=== PATIENT | female | born 1970 | race Caucasian/White ===

== ENCOUNTER 2019-08-26 08:33 | Outpatient (REF) | payer BC, SELFPAY ==
[2019-08-26 09:05] LABS: Basophils # 0.1 10^3/uL (0.0-0.1); Eosinophils # 0.1 10^3/uL (0.0-0.8); Eosinophils % 2.2 %; Hematocrit 37.9 % (37.0-47.0); Hemoglobin 11.1 g/dL (11.5-15.3); Lymphocytes # 1.8 10^3/uL (0.8-4.8); Lymphocytes % 28.9 %; Mean Corpuscular HGB Conc 29.3 g/dL (30.0-36.0); Mean Corpuscular Hemoglobin 24.6 pg (28.0-34.0); Mean Corpuscular Volume 83.8 fL (81-99); Mean Platelet Volume 12.7 fL (7.4-10.4); Monocytes # 0.5 10^3/uL (0.2-0.9); Monocytes % 8.6 %; Neutrophils # 3.7 10^3/uL (1.8-7.7); Neutrophils % 59.1 %; Nucleated Red Blood Cells % 0 %; Platelet Count 230 10^3/cmm (130-400); Red Blood Count 4.52 10^6/uL (4.1-5.3); Red Cell Distribution Width 14.8 % (12.1-15.1); White Blood Count 6.3 10^3/uL (4.0-10.0)
[2019-08-26 13:54] LABS: Alanine Aminotransferase 14 U/L (0-33); Albumin Level 4.2 g/dL (3.5-5.2); Alkaline Phosphatase 59 IU/L (35-105); Anion Gap 15.9 (5-19); Aspartate Amino Transferase 24 U/L (0-32); Blood Urea Nitrogen 11 mg/dL (6-20); Calcium 9.6 mg/dL (8.5-10.5); Carbon Dioxide 26 mmol/L (22-29); Chloride 100 mmol/L (98-107); Chol HDL Ratio 2.67 mg/dL (0.0-4.40); Cholesterol 203 mg/dL (0-200); Globulin 3.2 g/dL (1.3-4.6); Glomerular Filtration Rate 106.7 mL/min (90-130); Glucose 88 mg/dL (65-115); HDL Cholesterol 76 mg/dL (60-100); LDL Cholesterol Calculated 112 mg/dL (50-129); LDL HDL Ratio 1.47 RATIO (0.00-3.22); Potassium 3.9 mmol/L (3.5-5.1); Sodium 138 mmol/L (136-145); Thyroid Stimulating Hormone 1.16 uIU/mL (0.27-4.20); Total Bilirubin 0.3 mg/dL (0.15-1.2); Total Protein 7.4 g/dL (6.6-8.7); Triglycerides 77 mg/dL (0-150)
[2019-08-26 23:22] LABS: 25 Hydroxy Vitamin D 28 ng/mL (30-100)
[2019-08-27 02:40] LABS: Estmated Average Glucose 123; Hemoglobin A1C 5.9 % (4.0-6.0)
== END 2019-08-26 08:34 | disposition home or self-care (01) ==
LOC: LAB 08:33
PROVIDERS: Family Provider Electrodiagnostic Medicine; Visit Provider Dermatology
DX: Z01.89 Encounter for other specified special examinations (principal)
CPT/HCPCS: 80053; 80061; 82306; 83036; 84443; 85025

== ENCOUNTER 2020-02-16 12:12 | Emergency (ER) | payer BC, SELFPAY ==
[2020-02-16 12:13] VITALS: BP 117/75; PULSE 70; RESP 16; TEMP 36.8; O2SAT 100; BMI 20.9
--- NOTE | 2020-02-16 12:27 | XRR_ITS ---
PROCEDURE INFORMATION: Exam: XR Chest, 1 View Exam date and time: 02/16/2020 12:51 PM Age: 49 years old Clinical indication: Condition or disease; Other: Covid postive, ; additional info: Covid postive, chest tightness TECHNIQUE: Imaging protocol: XR of the chest Views: 1 view. COMPARISON: No relevant prior studies available. FINDINGS: Lungs: Probable 5 mm calcified granuloma right upper lung field. No acute infiltrate evident. Pleural space: Unremarkable. No pleural effusion. No pneumothorax. Heart/Mediastinum: Calcified azygos region mediastinal lymph nodes. No cardiomegaly. Bones/joints: Unremarkable. XR/XR chest 1V portable [id number] IMPRESSION: No acute findings. Old granulomatous disease.
[2020-02-16 13:17] LABS: Basophils % 0.8 %; Eosinophils % 0.4 %; Hematocrit 37.7 % (37.0-47.0); Hemoglobin 11.4 g/dL (11.5-15.3); Mean Corpuscular HGB Conc 30.2 g/dL (30.0-36.0); Mean Corpuscular Hemoglobin 26.4 pg (28.0-34.0); Mean Corpuscular Volume 87.3 fL (81-99); Mean Platelet Volume 12.8 fL (7.4-10.4); Monocytes # 0.4 10^3/uL (0.2-0.9); Monocytes % 15.7 %; Neutrophils # 1.15 10^3/uL (1.8-7.7); Neutrophils % 45.1 %; Nucleated Red Blood Cells % 0 %; Platelet Count 177 10^3/cmm (130-400); Red Blood Count 4.32 10^6/uL (4.1-5.3); Red Cell Distribution Width 14.2 % (12.1-15.1); White Blood Count 2.6 10^3/uL (4.0-10.0)
[2020-02-16 13:30] LABS: Alanine Aminotransferase 17 U/L (0-33); Albumin Level 4.2 g/dL (3.5-5.2); Alkaline Phosphatase 57 IU/L (35-105); Anion Gap 14.4 (5-19); Aspartate Amino Transferase 29 U/L (0-32); Blood Urea Nitrogen 8 mg/dL (6-20); Calcium 8.2 mg/dL (8.5-10.5); Carbon Dioxide 23 mmol/L (22-29); Chloride 102 mmol/L (98-107); Creatinine Clr Calc Pharmacy 94.0361; Globulin 3.2 g/dL (1.3-4.6); Glomerular Filtration Rate 88.9 mL/min (90-130); Glucose 94 mg/dL (65-115); Osmolality Calculated 278 mOsm/kg (285-295); Potassium 3.4 mmol/L (3.5-5.1); Sodium 136 mmol/L (136-145); Total Bilirubin 0.2 mg/dL (0.15-1.2); Total Protein 7.4 g/dL (6.6-8.7)
[2020-02-16 13:31] LABS: Troponin(5th) Baseline 6 ng/L (0-10)
--- NOTE | 2020-02-16 13:56 | W.ED.CHESTPA ---
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 except for the chest tightness she has MD complaint: chest discomfort Timing of current episode: episodic Prior episodes: No Associated symptoms: Deny abdominal pain, dyspnea, fever(s), nausea or vomiting Review of Systems Const: Denies: fever(s), chills or body aches Eyes: Denies: change in vision or blurry vision ENMT: Denies: throat pain or nasal congestion Card: Reports: other (COVID positive and chest tightness) Resp: Denies: dyspnea, productive cough or non-productive cough GI: Denies: abdominal pain, nausea or vomiting Musc: Denies: extremity pain Skin/Breast: Denies: rash Neuro: Denies: headache(s) Psych: Denies: anxiety or depression Peyman/Lymph: Denies: easy bruising REPLACED BY [facility] Female Reproductive History: Date of last menstrual period: 02/16/20 Physical Exam Const: COMMON NORMALS: no acute distress, average body habitus and patient oriented x3 HENMT: COMMON NORMALS: normocephalic HEAD & SCALP: normal to inspection and normocephalic FACE & SINUS: normal facial exam Eye: COMMON NORMALS: conjunctivae normal GENERAL EYE: appearance normal, both eyes and all related structures CONJUNCTIVA: Yes conjunctivae normal Neck/C-Spine: COMMON NORMALS: no JVD Chest: COMMONS NORMALS: normal inspection of the chest Resp: COMMON NORMALS: normal respiratory effort and clear to auscultation bilaterally AUSCULTATION: clear to auscultation bilaterally Cardio: COMMON NORMALS: no JVD, regular rate and regular rhythm RATE: regular rate RHYTHM: regular rhythm GI: COMMON NORMALS: Normal to inspection, nondistended, normoactive bowel sounds present Extremity: COMMON NORMALS: normal to inspection and full ROM Neuro: COMMON NORMALS: patient oriented x3 Course Vital Signs: Vital signs: Vital Signs Temperature 98.2 F 02/16/20 12:13 Pulse Rate 70 02/16/20 12:13 Respiratory Rate 16 02/16/20 12:13 Blood Pressure 117/75 02/16/20 12:13 Pulse Oximetry 100 02/16/20 12:13 MDM - Chest Pain Lab Data: Labs: Lab Results 02/16/20 02/16/20 02/16/20 Range/Units 13:01 13:01 13:01 WBC 2.6 L (4.0-10.0) 10^3/ uL RBC 4.32 (4.1-5.3) 10^6/u L Hgb 11.4 L (11.5-15.3) g/dL Hct 37.7 (37.0-47.0) % MCV 87.3 (81-99) fL MCH 26.4 L (28.0-34.0) pg MCHC 30.2 (30.0-36.0) g/dL RDW 14.2 (12.1-15.1) % Plt Count 177 (130-400) 10^3/c mm MPV 12.8 H (7.4-10.4) fL Neut % (Auto) 45.1 % Lymph % (Auto) 38.0 % [place] % (Auto) 15.7 % Eos % (Auto) 0.4 % Baso % (Auto) 0.8 % Neut # (Auto) 1.15 L (1.8-7.7) 10^3/u L Lymph # (Auto) 1.0 (0.8-4.8) 10^3/u L [place] # (Auto) 0.4 (0.2-0.9) 10^3/u L Eos # (Auto) 0.0 (0.0-0.8) 10^3/u L Baso # (Auto) 0.0 (0.0-0.1) 10^3/u L Nucleated RBC % (a uto) 0 % Nucleated RBCs # 0.0 /100WBC Sodium 136 (136-145) mmol/L Potassium 3.4 L (3.5-5.1) mmol/L Chloride 102 (98-107) mmol/L Carbon Dioxide 23 (22-29) mmol/L Anion Gap 14.4 (5-19) BUN 8 (6-20) mg/dL Creatinine 0.7 (0.5-0.9) mg/dL GFR Calculation 88.9 L (90-130) mL/min Glucose 94 (65-115) mg/dL Calculated Osmolal ity 278 L (285-295) mOsm/k g Calcium 8.2 L (8.5-10.5) mg/dL Total Bilirubin 0.2 (0.15-1.2) mg/dL AST 29 (0-32) U/L ALT 17 (0-33) U/L Alkaline Phosphata se 57 (35-105) IU/L Troponin T Baselin e 6 (0-10) ng/L Total Protein 7.4 (6.6-8.7) g/dL Albumin 4.2 (3.5-5.2) g/dL Globulin 3.2 (1.3-4.6) g/dL Discharge Plan Discharge Patient Disposition: Home Clinical Impression: COVID-19 Condition: Stable Prescriptions: No Action pseudoephedrine HCl [Sudafed] 30 mg tablet 30 mg PO Q6H PRN (Reason: nasal congestion) Qty: 100 RF: 3 Tylenol 325 mg Tablet 650 mg PO PRN RF: 0 Aspir-81 81 mg Tablet,Delayed Release (Dr/Ec) 81 mg PO DAILY RF: 0 Benadryl 25 mg Capsule 25 mg PO BEDTIME PRN (Reason: unknown) RF: 0 Discharge Orders: Discharge Order (Routine); Ordered 02/16/20 Ordered By: Bertrand Velez Referrals: Levy Méndez, [Primary Care Provider] - Discharge Diet: Usual diet Discharge Activity: Increase activity as tolerated Patient Instructions: Viral Syndrome (ED) Activity Restrictions/Additional Instructions: Isolation precautions at home. Monitor for signs of shortness of breath worsening cough return here if worsens. Follow-up your family medical provider if other questions arise. Coding Level of Care Code ED Senior Group Manager for Елена Shaw
[2020-02-16 14:23] VITALS: BP 103/68; PULSE 78; RESP 18; O2SAT 98
--- NOTE | 2020-02-16 14:27 | ECG_ITS ---
[facility] Test Date: 2020-02-16 Pat Name: Gina Baum Department: Room: Gender: Female Senior [employer] Developer: : 1970 Requested By: Bertrand Velez Order Number: [id number] Sanjana MD: Shahram Post M.D. Measurements Intervals [place] Rate: 71 P: 75 GA: 148 QRS: 44 QRSD: 97 T: 50 QT: 383 QTc: 416 Interpretive Statements SINUS RHYTHM No previous ECG available for comparison Electronically Signed On 02-17-2020 16:10:29 CDT by Shahram Post M.D. [email or web address]
== END 2020-02-16 14:25 | disposition home or self-care (01) ==
PROVIDERS: Emergency Provider Nurse Practitioner Family; PCP Electrodiagnostic Medicine
DX: U07.1 COVID-19 (principal); Z79.82 Long term (current) use of aspirin
CPT/HCPCS: 12345; 36415; 71045; 80053; 84484; 85025; 93005; 99281; 99283

== ENCOUNTER 2020-06-25 09:58 | Outpatient (CLI) | payer BC, SELFPAY ==
--- NOTE | 2020-06-25 10:00 | MM_ITS ---
WS: [id number] BILATERAL DIGITAL DIAGNOSTIC MAMMOGRAM MAMMOGRAPHY WITH CAD CLINICAL INFORMATION: R92.8 - Other abnormal and inconclusive findings on diagnostic imaging of [place] t COMPARISON: May 26, 2019 TECHNIQUE: Bilateral CC, MLO, and ML views. FINDINGS: Scattered fibroglandular densities bilaterally. Right breast is unchanged in appearance. Stable dystr ophic calcifications near the areola left breast. A few asymmetric densities left breast are unchange d in appearance. Ultrasound is pending. ULTRASOUND BREAST LEFT TECHNIQUE: Ultrasound left breast focused area of concern. CLINICAL INFORMATION: R92.8 - Other abnormal and inconclusive findings on diagnostic imaging of sar[place] t COMPARISON: Ultrasound May 26, 2019 FINDINGS: Ultrasound left breast at the 1 to 3:00 position. Previously described small subcentimeter hypoechoic lesions are similar in appearance to the prior examination measuring 3 to 4 mm at the 1:00 position and 7 mm at the 3:00 position near the areola. Additional lesion at the areola measuring 4.7 mm is al so unchanged. MM/[place] [id number] IMPRESSION: BI-RADS: 2-Benign FOLLOW UP: 1 Year Follow-up Recommend return to annual diagnostic mammography.
--- NOTE | 2020-06-25 11:00 | US_ITS ---
WS: [id number] BILATERAL DIGITAL DIAGNOSTIC MAMMOGRAM MAMMOGRAPHY WITH CAD CLINICAL INFORMATION: R92.8 - Other abnormal and inconclusive findings on diagnostic imaging of [place] t COMPARISON: May 26, 2019 TECHNIQUE: Bilateral CC, MLO, and ML views. FINDINGS: Scattered fibroglandular densities bilaterally. Right breast is unchanged in appearance. Stable dystr ophic calcifications near the areola left breast. A few asymmetric densities left breast are unchange d in appearance. Ultrasound is pending. ULTRASOUND BREAST LEFT TECHNIQUE: Ultrasound left breast focused area of concern. CLINICAL INFORMATION: R92.8 - Other abnormal and inconclusive findings on diagnostic imaging of sarah t COMPARISON: Ultrasound May 26, 2019 FINDINGS: Ultrasound left breast at the 1 to 3:00 position. Previously described small subcentimeter hypoechoic lesions are similar in appearance to the prior examination measuring 3 to 4 mm at the 1:00 position and 7 mm at the 3:00 position near the areola. Additional lesion at the areola measuring 4.7 mm is al so unchanged. US/US breast LT limited* [id number] IMPRESSION: BI-RADS: 2-Benign FOLLOW UP: 1 Year Follow-up Recommend return to annual diagnostic mammography.
== END 2020-06-25 09:59 | disposition home or self-care (01) ==
LOC: RADSHAW 10:00
PROVIDERS: PCP Electrodiagnostic Medicine; Visit Provider Obstetrics & Gynecology
DX: R92.8 Other abnormal and inconclusive findings on diagnostic imaging of breast (principal)
CPT/HCPCS: 76642; 77066

== ENCOUNTER 2020-09-05 11:23 | Outpatient (CLI) | payer OTHER, SELFPAY ==
--- NOTE | 2020-09-05 11:56 | XR_ITS ---
WS: [id number] LEFT HIP HISTORY: LT HIP PAIN COMPARISON: None available. LEFT hip: No acute fracture or dislocation. Mild narrowing of the hip joint. Sclerosis along the supe rior acetabulum. No osteoblastic or osteolytic disease. XR/XR hip LT 2-3V wo/w pel* [id number] IMPRESSION: 1. No hip fracture. 2. 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
== END 2020-09-05 11:24 | disposition home or self-care (01) ==
PROVIDERS: PCP Electrodiagnostic Medicine; Visit Provider Electrodiagnostic Medicine
DX: M25.552 Pain in left hip (principal)
CPT/HCPCS: 73502

== ENCOUNTER 2020-09-14 12:43 | Outpatient (CLI) | payer OTHER, SELFPAY ==
--- NOTE | 2020-09-14 12:52 | MR_ITS ---
WS: [id number] MRI LEFT HIP NONCONTRAST TECHNIQUE: Axial T1, axial T2 fat sat, coronal T1, coronal STIR, sagittal T2 fat sat, sagittal T1, an d sagittal T2 fat sat, of both hips. CLINICAL INFORMATION: LT HIP PAIN;OTHER SPRAIN OF UNSPEC HIP COMPARISON: None. FINDINGS: Normal bone marrow signal in the lower lumbar spine and pelvic bony structures. Normal bone marrow si gnal in both hips. No evidence of acute fracture. No bone marrow edema. Normal bone marrow signal in the femoral heads and femoral necks bilaterally. No evidence of avascular necrosis. No significant joint effusion. Mild degenerative arthritis both hips with mild joint space narrowing left greater than right. Mild sclerosis along the left acetabulum. Incidental right ovarian cyst dot uring 11 mm. Submucosal fibroid in the uterus measuring 18 mm. Arcuate type configuration to the uter us. MR/MR hip LT wo con* [id number] IMPRESSION: 1. Mild degenerative arthritis both hips with joint space narrowing. Slight sc lerosis along the left superior acetabulum. No acute fractures. 2. No significant joint effusion or avascular necrosis. Hips are otherwise nor mal in appearance. 3. Normal bone marrow signal in the lower lumbar spine and sacrum. 4. Submucosal fibroid in the uterus measuring 1.8 cm. Arcuate configuration to the uterus 5. Right ovarian cyst measuring 11 mm. 6. 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
== END 2020-09-14 12:44 | disposition home or self-care (01) ==
LOC: RADSHAW 12:44
PROVIDERS: PCP Electrodiagnostic Medicine; Visit Provider Electrodiagnostic Medicine
DX: S73.192A Other sprain of left hip, initial encounter; X58.XXXA Exposure to other specified factors, initial encounter; M16.0 Bilateral primary osteoarthritis of hip
CPT/HCPCS: 73721

== ENCOUNTER 2020-10-09 08:30 | Outpatient (CLI) | payer SELFPAY ==
[2020-10-09 09:14] LABS: Basophils # 0.1 10^3/uL (0.0-0.1); Eosinophils # 0.1 10^3/uL (0.0-0.8); Eosinophils % 1.9 %; Hematocrit 39.3 % (37.0-47.0); Lymphocytes # 1.5 10^3/uL (0.8-4.8); Lymphocytes % 25.3 %; Mean Corpuscular HGB Conc 30.5 g/dL (30.0-36.0); Mean Corpuscular Hemoglobin 27.1 pg (28.0-34.0); Mean Corpuscular Volume 88.7 fL (81-99); Mean Platelet Volume 12.1 fL (7.4-10.4); Monocytes # 0.4 10^3/uL (0.2-0.9); Neutrophils # 3.78 10^3/uL (1.8-7.7); Neutrophils % 64.6 %; Nucleated Red Blood Cells % 0 %; Platelet Count 244 10^3/cmm (130-400); Red Blood Count 4.43 10^6/uL (4.1-5.3); Red Cell Distribution Width 14.5 % (12.1-15.1); White Blood Count 5.9 10^3/uL (4.0-10.0)
[2020-10-09 09:39] LABS: Estmated Average Glucose 91; Hemoglobin A1C 4.8 % (4.0-6.0)
[2020-10-09 09:48] LABS: Alanine Aminotransferase 11 U/L (0-33); Albumin Level 4.5 g/dL (3.5-5.2); Alkaline Phosphatase 64 IU/L (35-105); Anion Gap 12.2 (5-19); Aspartate Amino Transferase 18 U/L (0-32); Blood Urea Nitrogen 11 mg/dL (6-20); Carbon Dioxide 26 mmol/L (22-29); Chloride 102 mmol/L (98-107); Chol HDL Ratio 2.56 mg/dL (0.0-4.40); Cholesterol 192 mg/dL (0-200); Globulin 3.2 g/dL (1.3-4.6); Glomerular Filtration Rate 106.3 mL/min (90-130); Glucose 89 mg/dL (65-115); HDL Cholesterol 75 mg/dL (60-100); LDL Cholesterol Calculated 101 mg/dL (50-129); LDL HDL Ratio 1.35 RATIO (0.00-3.22); Osmolality Calculated 281 mOsm/kg (285-295); Potassium 4.2 mmol/L (3.5-5.1); Sodium 136 mmol/L (136-145); Thyroid Stimulating Hormone 1.16 uIU/mL (0.27-4.20); Total Bilirubin 0.3 mg/dL (0.15-1.2); Total Protein 7.7 g/dL (6.6-8.7); Triglycerides 79 mg/dL (0-150)
[2020-10-09 12:59] LABS: 25 Hydroxy Vitamin D 21 ng/mL (30-100)
== END 2020-10-09 08:31 | disposition home or self-care (01) ==
LOC: LAB 08:39
PROVIDERS: PCP Electrodiagnostic Medicine; Visit Provider Dermatology
DX: Z01.89 Encounter for other specified special examinations (principal)
CPT/HCPCS: 80053; 80061; 82306; 83036; 84443; 85025

== ENCOUNTER 2021-09-20 09:04 | Outpatient (CLI) | payer OTHER, SELFPAY ==
--- NOTE | 2021-09-20 09:14 | MM_ITS ---
WS: [id number] BILATERAL SCREENING DIGITAL MAMMOGRAM WITH CAD HISTORY: SCREENING COMPARISON: 06/25/2020 and 05/12/2019, ultrasound 06/01/2019 Bilateral CC and MLO views submitted. Computer aided detection analyzed. Breast composition: There are scattered areas of fibroglandular density. No suspicious masses, microc alcifications or architectural distortion. Again noted is the irregular asymmetry measuring 8 mm in t he posterior superior LEFT breast towards axillary tail. This was described and noted on prior imagin g studies from 2018 and 2019. Not significantly increased in size but new since 2018. There are sever al worrisome features about this asymmetry although there is no increase in size. MM/[place] [id number] IMPRESSION: BI-RADS: 0-Incomplete: Need additional imaging evaluation FOLLOW UP: Need Additional Imaging LEFT breast: Spot compression views (exaggerated lateral CC and MLO). True ML. Ultrasound to follow if abnormality persists. This asymmetry continues without increase in size over the last several years. There are some concerning features. I believe it would be appropriate to reeval uate this asymmetry again.
== END 2021-09-20 09:05 | disposition home or self-care (01) ==
LOC: RADSHAW 09:07
PROVIDERS: PCP Electrodiagnostic Medicine; Visit Provider Electrodiagnostic Medicine
DX: Z12.31 Encounter for screening mammogram for malignant neoplasm of breast (principal)
CPT/HCPCS: 77067

== ENCOUNTER 2021-10-14 11:31 | Outpatient (CLI) | payer OTHER, SELFPAY ==
--- NOTE | 2021-10-14 11:38 | MM_ITS ---
WS: [id number] ADDITIONAL VIEWS LEFT MAMMOGRAM LEFT BREAST ULTRASOUND HISTORY: LT BREAST MASS COMPARISON: 09/20/2021, 06/25/2020, 05/26/2019 and 05/12/2019 LEFT MAMMOGRAM: Spot compression views and true ML. The asymmetry and spiculation in the superior LEFT breast is much less apparent with additional views . There is only minimal persistent increased density and asymmetry in the upper outer quadrant. LEFT BREAST ULTRASOUND 2-D and color Doppler imaging submitted. No abnormality is noted within the lateral LEFT breast at the area of mammographic abnormality. There is a small cyst which does not correspond to the mammographic abnormality. MM/[place] [id number] IMPRESSION: BI-RADS: 2-Benign FOLLOW UP: 1 Year Follow-up The asymmetry significantly improved with additional imaging of the LEFT breast . No ultrasound abnormality was identified.
== END 2021-10-14 11:32 | disposition home or self-care (01) ==
PROVIDERS: PCP Electrodiagnostic Medicine; Visit Provider Electrodiagnostic Medicine
DX: N63.20 Unspecified lump in the left breast, unspecified quadrant (principal); N64.89 Other specified disorders of breast
CPT/HCPCS: 76642; 77061

== ENCOUNTER 2022-10-27 08:58 | Outpatient (CLI) | payer OTHER, SELFPAY ==
--- NOTE | 2022-10-27 09:14 | MM_ITS ---
WS: [id number] BILATERAL SCREENING DIGITAL TOMOSYNTHESIS MAMMOGRAM WITH CAD HISTORY: SCREENING COMPARISON: 06/25/2020, 09/20/2021, 05/12/2019 Bilateral CC and MLO views with tomosynthesis and synthetic mammography submitted. Computer aided det ection analyzed. Breast composition: There are scattered areas of fibroglandular density. No suspicious masses, microc alcifications or architectural distortion. Spiculated 4 mm nodule seen on the LEFT MLO in the superio r breast. This was previously described and has significantly decreased in size since 2019. Benign ca lcifications LEFT subareolar. MM/[place] [id number] IMPRESSION: BI-RADS: 2-Benign FOLLOW UP: 1 Year Follow-up
== END 2022-10-27 08:59 | disposition home or self-care (01) ==
PROVIDERS: PCP Electrodiagnostic Medicine; Visit Provider Electrodiagnostic Medicine
DX: Z12.31 Encounter for screening mammogram for malignant neoplasm of breast (principal)
CPT/HCPCS: 77063; 77067

== ENCOUNTER 2022-11-13 09:51 | Outpatient (CLI) | payer OTHER, SELFPAY ==
--- NOTE | 2022-11-13 10:03 | XR_ITS ---
WS: [id number] SCREENING DEXA SCAN [employer] CLINICAL INFORMATION: POSTMENOPAUSAL COMPARISON: None. FINDINGS: The L1-L4 bone mineral density measures 1.205 g/cm2. This corresponds to a T score score of 0.2 and Z score of 0.9. Left femoral neck bone mineral density measures 0.844 g/cm2. This corresponds to a T score of -1.3 an d Z score of -0.7. Right femoral neck bone mineral density measures 0.905 g/cm2. This corresponds to a T score -0.8of an d Z score of -0.2. Mean femoral neck bone mineral density measures 0.874 g/cm2. This corresponds to a T score of -1.1 an d Z score of -0.4. XR/XR DEXA axial skeleton* [id number] IMPRESSION: Normal bone mineralization lumbar spine. Osteopenia femoral necks. Patient's FRAX calculated 10 year probability for major osteoporotic fracture i s 9.0 % and osteoporotic hip fracture is 0.9%.
== END 2022-11-13 09:52 | disposition home or self-care (01) ==
LOC: RAD 09:55
PROVIDERS: PCP Electrodiagnostic Medicine; Visit Provider Electrodiagnostic Medicine
DX: Z78.0 Asymptomatic menopausal state (principal)
CPT/HCPCS: 77080

== ENCOUNTER 2023-11-17 14:24 | Outpatient (CLI) | payer OTHER, SELFPAY ==
--- NOTE | 2023-11-17 14:32 | MM_ITS ---
WS: [id number] BILATERAL SCREENING DIGITAL TOMOSYNTHESIS MAMMOGRAM WITH CAD HISTORY: SCREENING COMPARISON: 10/27/2022, 10/14/2021 and 09/20/2021 Bilateral CC and MLO views with tomosynthesis and synthetic mammography submitted. Computer aided det ection analyzed. Breast composition: There are scattered areas of fibroglandular density. No suspicious masses, microc alcifications or architectural distortion. MM/[place] [id number] IMPRESSION: BI-RADS: 1-Negative FOLLOW UP: 1 Year Follow-up
== END 2023-11-17 14:25 | disposition home or self-care (01) ==
LOC: RAD 14:24
PROVIDERS: PCP Electrodiagnostic Medicine; Visit Provider Electrodiagnostic Medicine
DX: Z12.31 Encounter for screening mammogram for malignant neoplasm of breast (principal)
CPT/HCPCS: 77063; 77067